=== PATIENT | male | born 1955 | race Hispanic/Latino ===

== ENCOUNTER → 2017-06-14 | Outpatient (CLI) | payer OTHER | END | disposition home or self-care (01) | LOC: OIH 10:31 | PROVIDERS: ATTEND Family Medicine | DX: Z02.71 Encounter for disability determination (principal); M17.11 Unilateral primary osteoarthritis, right knee; M10.9 Gout, unspecified | CPT/HCPCS: 73562 ==

== ENCOUNTER 2019-03-15 06:30 | Day surgery (SDC) | payer MEDICARE ==
[2019-03-14 10:35] VITALS: BP 141/81
[2019-03-14 10:36] LABS: EOSINOPHILS % (AUTO) 3.5 % (0.0-8.0); HEMATOCRIT 40.8 % (42-54); LYMPHOCYTES % (AUTO) 6.2 % (21.0-51.0); MEAN CORPUSCULAR HEMOGLOBIN 29.3 pg (27.0-33.0); MEAN CORPUSCULAR HGB CONC 32.3 g/dL (32.0-36.0); MEAN CORPUSCULAR VOLUME 90.8 fL (79-99); MONOCYTES % (AUTO) 9.8 % (3.0-13.0); NEUTROPHILS % (AUTO) 79.5 % (40.0-77.0); PLATELET COUNT (AUTO) 164 K/uL (130-400); RED BLOOD CELL COUNT(AUTO) 4.49 MIL/uL (4.50-6.20); RED CELL DISTRIBUTION WIDTH 15.8 % (11.0-15.5); WHITE BLOOD COUNT (AUTO) 8.6 K/uL (4.8-10.8)
[2019-03-14 10:47] LABS: CREATININE 5.2 mg/dL (0.5-1.5); POTASSIUM 4.9 mmol/L (3.5-5.1)
[2019-03-14 10:49] LABS: INR 1.01 (0.85-1.15); PROTHROMBIN TIME 10.6 SEC (9.6-11.6)
--- NOTE | 2019-03-14 11:12 | NUR ---
EKG INFORMED DR. QUIGLEY OF EKG. NO ORDERS RECEIVED. PROCEED WITH PLANNED PROCEDURE.
[2019-03-15] VITALS (17 sets, daily range): BP systolic 118–147; BP diastolic 71–85
[~2019-03-15] VITALS: Ht 175.3 cm; Wt 108.9 kg
[~2019-03-15 06:30] MED LIST: FOLI1TAB85 PO; GABA-531 PO; TRAM50TA4 PO
[2019-03-15] MEDS ORDERED: CEFAZOLIN SODIUM 1 GM VIAL ONE (06:50)
[2019-03-15] MEDS ORDERED: SODIUM CHLORIDE 0.9% 1000ML 1,000 ML IV ONE (06:50)
[2019-03-15] MEDS ORDERED: LIDOCAINE PF 2% 5ML ABBOJECT ONE (07:54)
[2019-03-15] MEDS ORDERED: FENTANYL CITRATE PF 50 MCG/1 ML 2ML VIAL ONE (07:55)
[2019-03-15] MEDS ORDERED: PROPOFOL 10 MG/ML 20ML VIAL IV ONE (07:55)
[2019-03-15] MEDS ORDERED: CEFAZOLIN SODIUM 1 GM VIAL IVP ONE (08:00)
[2019-03-15] MEDS ORDERED: BUPIVACAINE/PF 0.25% 30ML VIAL IJ ONE (08:27)
[2019-03-15] MEDS ORDERED: BACITRACIN 28.4 GM OINT TP ONE (08:27)
[2019-03-15] MEDS ORDERED: EPHEDRINE SULFATE 50 MG/ML AMPULE ONE (08:59)
== END 2019-03-15 11:27 ==
LOC: DAH 06:30
PROVIDERS: ATTEND Urology
DX: N47.1 Phimosis (principal); E11.22 Type 2 diabetes mellitus with diabetic chronic kidney disease; I12.0 Hypertensive chronic kidney disease with stage 5 chronic kidney disease or end stage renal disease; N18.6 End stage renal disease; M19.90 Unspecified osteoarthritis, unspecified site; Z99.2 Dependence on renal dialysis
CPT/HCPCS: 36415 ×2; 54161; 71045; 80048; 82948 ×3; 84132; 85025; 85610; 93005; A4215; A4216; A4221; A4222; A4223; A4600; A4606; A6260; J0690; J2001; J2704; J3010; J3490 ×2; J7030 ×2